=== PATIENT | male | born 1995 | race Two or more races ===

== ENCOUNTER 2018-01-14 00:07 | Emergency (ER) | payer OTHER ==
[2018-01-14 00:35] VITALS: BP 112/67
--- NOTE | 2018-01-14 01:29 | ER Document Report ---
ED General - General Chief Complaint: Laceration Stated Complaint: FINGER LACERATION Time Seen by Provider: 01/14/18 00:52 Notes: Patient is a 22-year-old male without chronic medical problems who presents with a laceration over the dorsal surface of his right middle finger. 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 He reports a throbbing, aching, constant pain, worsened by movement of the digit. He has not tried nothing for improvement of the pain. No history of similar in the past. He has not contacted his general doctor regarding today's concerns. He states his tetanus shot is up-to-date. No additional injuries. TRAVEL OUTSIDE OF THE [place] IN LAST 30 DAYS: No - Related Data Allergies/Adverse Reactions: No Known Allergies Allergy (Verified 01/14/18 00:45) Past Medical History - General Information source: Patient - Social History Smoking Status: Never Smoker Chew tobacco use (# tins/day): No Frequency of alcohol use: None Drug Abuse: None Lives with: Friend Family History: Reviewed & Not Pertinent Patient has suicidal ideation: No Patient has homicidal ideation: No Renal/ Medical History: Denies: Hx Peritoneal Dialysis Review of Systems - Review of Systems Notes: Constitutional: Negative for fever. Eyes: Negative for visual changes. ENT: Negative for facial injury Cardiovascular: Negative for chest injury. Respiratory: Negative for shortness of breath. Gastrointestinal: Negative for abdominal injury. Genitourinary: Negative for genital injury Musculoskeletal: Positive for right third finger injury Skin: Positive for laceration/abrasions. Neurological: Negative for head injury. Physical Exam - Vital signs Vitals: Temp Pulse Resp BP Pulse Ox 98.3 F 62 18 112/67 99 01/14/18 00:34 01/14/18 00:34 01/14/18 00:34 01/14/18 00:34 01/14/18 00:34 Notes: PHYSICAL EXAMINATION: GENERAL: Well-appearing, well-nourished and in no acute distress. HEAD: Atraumatic, normocephalic. EYES: sclera anicteric, conjunctiva are normal. ENT: Moist mucous membranes. NECK: Normal range of motion LUNGS: Normal work of breathing HEART: 2+ radial pulses bilaterally, brisk capillary refill in all digits of the right hand EXTREMITIES: no pitting or edema. No cyanosis. Full flexion extension of all digits of the right hand including middle finger against resistance at the DIP, MCP and PIP. NEUROLOGICAL: No focal neurological deficits. Moves all extremities spontaneously and on command. PSYCH: Normal mood, normal affect. SKIN: Warm, Dry, normal turgor, 1 cm laceration between the MCP and PIP of the right third digit over the dorsal surface with exposure of the underlying extensor tendons without any apparent associated laceration. Course - Re-evaluation Re-evalutation: 01/14/18 01:28 Patient presents with a 1 cm laceration with exposure of the extensor tendons over the dorsal surface of the right third digit between the MCP and PIP. No involvement of the ligament itself. Patient has full flexion and extension at the DIP, PIP, MCP against resistance. Wound was irrigated copiously, closed with 3 stitches. Tetanus is already up-to-date. Neurovascular intact. At this time will discharge with return precautions and follow-up recommendations. Verbal discharge instructions given a the bedside and opportunity for questions given. Medication warnings reviewed. Patient is in agreement with this plan and has verbalized understanding of return precautions and the need for primary care follow-up in the next 1 week for suture removal - Vital Signs Vital signs: Temp Pulse Resp BP Pulse Ox 98.3 F 62 18 112/67 99 01/14/18 00:34 01/14/18 00:34 01/14/18 00:34 01/14/18 00:34 01/14/18 00:34 Procedures - Laceration/Wound Repair Right Hand Wound length (cm): 1 Wound's Depth, Shape: Superficial Laceration pre-procedure: Sterile PPE donned Anesthetic type: 1% Lidocaine Volume Anesthetic (mLs): 1 Wound explored: Clean Irrigated w/ Saline (mLs): 500 Wound Debrided: Minimal Wound Repaired With: Sutures Suture Size/Type: 5:0, Prolene Number of Sutures: 3 Layer Closure?: No Post-procedure wound care: Sterile dressing applied Post-procedure NV exam normal: Yes Complications: No Discharge - Discharge Clinical Impression: Laceration of right middle finger Qualifiers: Encounter type: initial encounter Damage to nail status: without damage Foreign body presence: without foreign body Qualified Code(s): S61.212A - Laceration without foreign body of right middle finger without damage to nail, initial encounter Condition: Good Disposition: HOME, SELF-CARE Additional Instructions: Please return to your primary doctor, the ED, or an urgent care in 7 days for suture removal. Return immediately if you develop spreading redness around the wound, pus from the wound, worsening pain, or a fever of >100.4. Keep the area clean and dry. Wash gently with soap and water twice daily and cover with antibiotic ointment.
== END 2018-01-14 01:31 | disposition home or self-care (01) ==
LOC: ER 00:07
DX: S61.212A Laceration without foreign body of right middle finger without damage to nail, initial encounter (principal); W45.0XXA Nail entering through skin, initial encounter; Y93.H3 Activity, building and construction; Y92.009 Unspecified place in unspecified non-institutional (private) residence as the place of occurrence of the external cause
CPT/HCPCS: 99282

== ENCOUNTER 2018-05-27 22:09 | Emergency (ER) | payer OTHER ==
[2018-05-27 23:18] VITALS: BP 134/76
== END 2018-05-28 02:25 | disposition left against medical advice (07) ==
LOC: ER 22:09
DX: Z53.21 Procedure and treatment not carried out due to patient leaving prior to being seen by health care provider (principal)